=== PATIENT | female | born 1980 | race Two or more races ===

== ENCOUNTER 2021-07-31 11:28 | Emergency (ER) | payer OTHER ==
[~2021-07-31] VITALS: Ht 165.1 cm; Wt 71.3 kg
[2021-07-31 11:52] VITALS: BP 133/83
== END 2021-07-31 13:01 | disposition home or self-care (01) ==
LOC: EMS 11:28
DX: Z11.1 Encounter for screening for respiratory tuberculosis (principal)
CPT/HCPCS: 71045; 99283